=== PATIENT | female | born 1950 | race Caucasian/White ===

== ENCOUNTER → 2016-08-23 12:36 | Outpatient (CLI) | payer MEDICARE, BC ==
[2013-11-25 12:25] VITALS: BMI 31.6
[~2016-08-23 12:36] MED LIST: NEXIUM40 MG PO; OXYCODONE-ACET1 EAC3 PO; VOLTAREN75 MG PO; ZOCOR80 MG PO
[2016-08-23 15:51] LABS: BASOPHILS 0.3 % (0.0-2.0); EOSINOPHILS 1.4 % (0-7); HEMATOCRIT 43.9 % (36.0-48.0); HEMOGLOBIN 14.3 g/dL (12-16); IMMATURE GRANULOCYTES 0.3 % (0-5); MCH 28.8 pg (26.0-34.0); MCHC 32.6 g/dL (31.0-37.0); MCV 88.5 fL (80.0-100.0); MEAN PLATELET VOLUME 9.5 fL (7.4-10.4); MONOCYTES 5.9 % (2-11); NEUTROPHILS 57.1 % (40-80); PLATELET COUNT 226 10x3/uL (130-400); RBC 4.96 10x6/uL (4.00-5.40); RDW 13.4 % (11.5-14.5); WBC 7.7 10x3/uL (4.8-10.8)
[2016-08-23 16:18] LABS: ALBUMIN 3.5 g/dL (3.4-5.0); ANION GAP 12.9 mmol/L (8-16); BILIRUBIN - TOTAL 0.22 mg/dL (0.2-1.3); CARBON DIOXIDE 29.3 mmol/L (21.0-32.0); POTASSIUM - SERUM 4.2 mmol/L (3.5-5.1); PROTEIN - SERUM 7.4 g/dL (6.4-8.2); T4 THYROXIN - FREE 0.93 ng/dL (0.76-1.46); THYROID STIMULATING HORMONE 0.81 uIU/mL (0.36-3.74)
[2016-08-24 09:17] LABS: FOLATE (FOLIC ACID) - SERUM 12.8 ng/mL (>3.0)
--- NOTE | 2016-09-03 07:17 | EEG ---
PATIENT:KATHLEEN VELAZQUEZ DATE OF SERVICE: 08/23/16 MEDICAL RECORD: [id number] DATE OF : 52 LOCATION: DENI ADMISSION DATE: 08/23/16 REFERRING PHYSICIAN: INTERPRETING PHYSICIAN: TANJA KELLY MD DATE OF SERVICE: 08/23/2016 Referred by myself as an outpatient. ELECTROENCEPHALOGRAM NUMBER: [id number]. DATE OF EXAMINATION: 08/23/2016 at 1:15 p.m. DATE OF : 1950. TECHNICAL DATA: This electroencephalographic recording consists of approximately 20 minutes of data collection utilizing the international 10/20 system of electrode placement and both referential and non-referential montages. Sixteen channels of electrocerebral recording are accompanied by a 17th channel dedicated to the electrocardiographic rhythm and 2 channels of electromyographic recording. Recording is performed in the awake and sleep states utilizing activation by photic stimulation. ELECTROENCEPHALOGRAPHIC DATA: The awake state comprises approximately 20% of the recorded electrocerebral activity. Electromyographic artifact is prominent and rapid eye movements are seen. The posterior dominant background consists of a symmetric semi-arrhythmic waxing and waning 5-6 Hz theta activity, which is suppressed by eye opening. Also seen is an intermittent irregular generalized and symmetric 2-3 Hz delta slowing, which occurs for periods of less than 1 second approximately once every 2-3 pages. The drowsy state comprises approximately 60% of the recorded electrocerebral activity. Electromyographic artifact is diminished and rapid eye movements are not seen. The posterior dominant background is relatively suppressed. Delta slowing is more prominent in stage I sleep. The transition to stage II sleep, which comprises the remaining portion of the recorded electrocerebral activity, is heralded by the appearance of typical 15 Hz sleep spindles. No focal slowing is identified. No epileptiform discharges are seen. Photic stimulation induces no abnormal change in the recorded electrocerebral activity. INTERPRETATION: 1. Background slow (awake and asleep). 2. Intermittent slow, generalized. This electroencephalographic recording is indicative of a [id number] diffuse encephalopathy. TRANSINT:[id number] Voice Confirmation ID: [id number] DOCUMENT ID: [id number] ELECTROENCEPHALOGRAM REPORT [id number] KATHLEEN VELAZQUEZ TANJA KELLY MD at 0717 CC: [id number] DICTATION DATE: 08/24/16 0845 [employer] COORDINATOR: 08/24/16 1102 DEP CLI 08/23/16 [id number] [place] [address]
== END | disposition home or self-care (01) ==
LOC: D.CN 12:36
PROVIDERS: Psychiatry & Neurology Neurology
DX: G47.33 Obstructive sleep apnea (adult) (pediatric) (principal); E01.8 Other iodine-deficiency related thyroid disorders and allied conditions; E03.8 Other specified hypothyroidism